=== PATIENT | female | born 1930 | race Caucasian/White ===

== ENCOUNTER → 2016-12-24 | Outpatient (CLI) | payer MEDICARE ==
[~2016-12-24] VITALS: Ht 162.6 cm; Wt 55.8 kg
[2016-12-24 10:13] VITALS: BP 112/78
[2016-12-24 10:30] VITALS: BP 110/77
--- NOTE | 2016-12-25 09:55 | Diagnostic Imaging Report ---
EXAMINATION: Dedicated thyroid ultrasound performed with ultrasound guidance provided for FNA performed by Dr. Acharya. Indication: Thyroid nodule FINDINGS: Ultrasound images demonstrate a right thyroid nodule. IMPRESSION: Ultrasound guidance provided for right thyroid nodule FNA. Dictated by: Dictated on workstation # [id number]
== END ==
LOC: RAD 09:49
PROVIDERS: ATTEND Otolaryngology Otolaryngology/Facial Plastic Surgery
DX: E04.1 Nontoxic single thyroid nodule (principal)
CPT/HCPCS: 76942; 88305

== ENCOUNTER → 2017-01-22 | Outpatient (CLI) | payer MEDICARE ==
[~2017-01-22] MED LIST: CATHETER FLUSH 10 ML SYR IV PRN; IOHEXOL 350 MG/ML 100 ML (OMNIPAQUE 350) VIAL IV ONE; NS 100 ML (IVPB) BAG IV ONE
[2017-01-22 09:29] LABS: BLOOD UREA NITROGEN 11 MG/DL (7-18); BUN/CREATININE RATIO 13; CREATININE SERUM 0.87 MG/DL (0.60-1.30); GFR ESTIMATED > 60
--- NOTE | 2017-01-22 14:19 | Diagnostic Imaging Report ---
PROCEDURE: CT neck soft tissue with contrast. TECHNIQUE: Multiple contiguous axial images were obtained through the neck after the administration of contrast. INDICATION: Dysphagia, right neck mass. COMPARISON: I have no priors. FINDINGS: The nasopharynx, the oropharynx, and the hypopharynx are unremarkable. The trachea is patent. There is very slight leftward deviation of the trachea at the thoracic inlet owing to asymmetric heterogeneous multinodular right greater than left lobe thyromegaly. A discrete mass effect is not apparent, instead innumerable nodules throughout both lobes of the thyroid are present. There are no pathologically enlarged cervical lymph nodes. There is no fluid collection, abscess, or hematoma. There is mild eccentric calcified plaque at the carotid bulbs and bifurcations without evidence for substantial stenosis. The visualized pulmonary apices are nonacute. Parotid and submandibular glands are normal. 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 No airway embarrassment, however. No cervical lymphadenopathy or fluid collection. No acute abnormality. Mild carotid atherosclerosis without evidence for stenosis. Dictated by: Dictated on workstation # [id number]
== END ==
LOC: RAD 08:56
PROVIDERS: ATTEND Otolaryngology Otolaryngology/Facial Plastic Surgery
DX: E01.0 Iodine-deficiency related diffuse (endemic) goiter (principal); R13.10 Dysphagia, unspecified
CPT/HCPCS: 36415; 70491; 82565; 84520